=== PATIENT | male | born 1990 | race Two or more races ===

== ENCOUNTER 2023-06-15 11:03 | Emergency (ER) | payer MEDICAID ==
[~2023-06-15] VITALS: Ht 162.6 cm; Wt 58.1 kg
[2023-06-15] MEDS ORDERED: LIDOCAINE 1% INJ 50 ML MDV IJ ONE (11:19)
[2023-06-15] MEDS ORDERED: MORPHINE SULFATE INJ 2 MG/ML DISP.SYRIN IV ONE (11:30)
[2023-06-15] MEDS ORDERED: CEFAZOLIN 1 GM in IV D5W 50 ML IV ONE (11:30)
[2023-06-15] MEDS ORDERED: MORPHINE SULFATE INJ 2 MG/ML DISP.SYRIN ONE (11:34)
[2023-06-15] MEDS ORDERED: MORPHINE SULFATE INJ 4 MG/ML DISP.SYRIN ONE (11:34)
[2023-06-15] MEDS ORDERED: CEPH500C2 PO (13:19)
[2023-06-15 14:27] VITALS: BP 114/73; TEMP 98.4; O2SAT 100
== END 2023-06-15 14:28 | disposition home or self-care (01) ==
LOC: ER 11:11
DX: S63.285A Dislocation of proximal interphalangeal joint of left ring finger, initial encounter (principal); S61.215A Laceration without foreign body of left ring finger without damage to nail, initial encounter; S61.217A Laceration without foreign body of left little finger without damage to nail, initial encounter; W27.0XXA Contact with workbench tool, initial encounter; Y93.89 Activity, other specified; Y92.89 Other specified places as the place of occurrence of the external cause; Y99.8 Other external cause status
CPT/HCPCS: 12002; 73130; 96365; 96375; 99284; A4223; A6403; J0690; J2270; J3490; J7060

== ENCOUNTER 2023-06-18 07:24 | Emergency (ER) | payer MEDICAID ==
[~2023-06-18] VITALS: Ht 175.3 cm; Wt 60.3 kg
[~2023-06-18 07:24] MED LIST: CEPH500C2 PO
[2023-06-18 08:12] VITALS: BP 128/80; TEMP 99; O2SAT 99
== END 2023-06-18 08:12 | disposition home or self-care (01) ==
LOC: ER 07:27
DX: S61.412D Laceration without foreign body of left hand, subsequent encounter (principal); Z79.899 Other long term (current) drug therapy; Z60.2 Problems related to living alone; X58.XXXD Exposure to other specified factors, subsequent encounter